=== PATIENT | female | born 1995 | race Caucasian/White ===

== ENCOUNTER 2021-02-03 05:59 | Inpatient (IN) ==
[2021-02-03] MEDS ORDERED: Penicillin G Potassium 5,000,000 UNIT in 0.9 % Sodium Chloride Mini Bag 100 ML IVPB ONE (06:01)
[2021-02-03] MEDS ORDERED: Azithromycin 500 MG in 0.9 % Sodium Chloride 250 ML IVPB PRN (06:03)
[2021-02-03] MEDS ORDERED: *HR* Nalbuphine 10 MG/ML AMPUL IV PRN (06:03)
[2021-02-03] MEDS ORDERED: Ondansetron 4 MG/2 ML VIAL IVP PRN (06:03)
[2021-02-03] MEDS ORDERED: Metoclopramide 10 MG/2 ML VIAL IVP PRN (06:03)
[2021-02-03] MEDS ORDERED: Famotidine 20 MG/2 ML VIAL IVP PRN (06:03)
[2021-02-03] MEDS ORDERED: Naloxone 0.4 MG/ML INJ IVP PRN (06:03)
[2021-02-03] MEDS: Ringers Solution, Lactated 1,000 ML IVC SCH ×2 (06:42→14:31)
[2021-02-03 07:22] LABS: Influenza A PCR Negative (Negative); Influenza B PCR Negative (Negative); Resp. Syncytial Virus PCR Negative (Negative)
[2021-02-03 07:23] LABS: SARS-CoV-2 by PCR (In House) Negative (Negative)
[2021-02-03 08:23] LABS: Basophils % 0.3 %; Eosinophils % 0.2 %; Hematocrit 36.9 % (35.3-44.9); Hemoglobin 12.6 g/dL (11.5-15.4); Immature Granulocytes % 0.5 % (0-4); Mean Corpuscular HGB Conc 34.1 g/dL (31.6-35.5); Mean Corpuscular Volume 84.8 fL (83.0-100.0); Mean Platelet Volume 11.2 fL (9.4-12.4); Monocytes # 0.6 K/mcL (0.0-1.3); Neutrophils # 7.1 K/mcL (1.6-8.9); Platelet Count 270 K/mcL (140-400); Red Blood Count 4.35 M/mcL (3.82-4.97); Red Cell Distribution Width 12.8 % (11.5-14.5); White Blood Count 9.7 K/mcL (4.3-11.1)
[2021-02-03] MEDS ORDERED: miSOPROStoL 25 MCG TABLET PO PRN (08:26)
[2021-02-03] MEDS ORDERED: Oxytocin 20 units/ LR 1000 mL 20 UNIT/1,000 ML BAG IVC SCH ×2 (08:30→18:14)
[2021-02-03] MEDS: Penicillin G Potassium 2,500,000 UNIT/105 ML MLS IVPB SCH ×2 (10:34→14:31)
[2021-02-03 11:03] LABS: Amphetamine Screen,Urine Negative ng/mL (Cutoff=1000); Barbiturate Screen,Urine Negative ng/mL (Cutoff=200); Benzodiazepines Screen,Urine Negative ng/mL (Cutoff=200); Cannabinoid Screen,Urine Negative ng/mL (Cutoff = 50); Cocaine Screen,Urine Negative ng/mL (Cutoff= 300); Opiate Screen,Urine Negative ng/mL (Cutoff=300); Phencyclidine Screen,Urine Negative ng/mL (Cutoff=25)
[2021-02-03] MEDS ORDERED: EPHEDrine 50 MG/ML VIAL IVP PRN (15:16)
[2021-02-03] MEDS ORDERED: Ropivacaine/PF 0.2% 20 ML VIAL EP ONE (15:16)
[2021-02-03] MEDS ORDERED: *HR* FentaNYL (PF) 100 MCG/2 ML VIAL EP ONE (15:16)
[2021-02-03] MEDS ORDERED: Epidural Premix (fent/bupiv) 110 ML EP SCH (15:30)
[2021-02-03] MEDS ORDERED: Rho Immune Globulin 1,500 UNIT SYRINGE IM PRN (18:14)
[2021-02-03] MEDS ORDERED: Ondansetron ODT 4 MG TAB.RAPDIS SL PRN (18:14)
[2021-02-03] MEDS ORDERED: Lanolin 7 G OINT...G. TP PRN (18:14)
[2021-02-03] MEDS ORDERED: Benzocaine/Menthol 56 GM AEROSOL SPRAY TP PRN (18:14)
[2021-02-03] MEDS ORDERED: Measles/Mumps/Rubella Vacc 0.5 ML VIAL SQ PRN (18:14)
[2021-02-03] MEDS: Ibuprofen 600 MG TABLET PO SCH (19:42)
[2021-02-03] MEDS: Acetaminophen 325 MG TABLET PO SCH (19:42)
[2021-02-04] MEDS: Acetaminophen 325 MG TABLET PO SCH ×2 (03:48→10:26)
[2021-02-04] MEDS: Ibuprofen 600 MG TABLET PO SCH ×2 (03:48→10:26)
[2021-02-04 04:15] VITALS: PULSE 63
[2021-02-04 05:32] LABS: Basophils % 0.2 %; Eosinophils % 0.2 %; Hematocrit 36.4 % (35.3-44.9); Hemoglobin 11.9 g/dL (11.5-15.4); Immature Granulocytes % 0.3 % (0-4); Lymphocytes % 15.2 %; Mean Corpuscular HGB Conc 32.7 g/dL (31.6-35.5); Mean Corpuscular Hemoglobin 28.5 pg (28.0-33.3); Mean Corpuscular Volume 87.3 fL (83.0-100.0); Mean Platelet Volume 11.2 fL (9.4-12.4); Monocytes # 0.7 K/mcL (0.0-1.3); Monocytes % 5.5 %; Neutrophils # 10.4 K/mcL (1.6-8.9); Platelet Count 268 K/mcL (140-400); Red Blood Count 4.17 M/mcL (3.82-4.97); Red Cell Distribution Width 12.8 % (11.5-14.5); Segmented Neutrophils % 78.6 %; White Blood Count 13.2 K/mcL (4.3-11.1)
[2021-02-04 07:56] VITALS: BP 108/70; TEMP 98.1; O2SAT 99
[2021-02-04] MEDS ORDERED: Prenatal Vit/FA 1 EACH TABLET PO SCH ×2 (09:00)
== END 2021-02-04 17:58 | disposition home or self-care (01) | DRG 560 ==
LOC: 1NENULAB 05:59 → 1NENUOBS 18:32
PROVIDERS: ADMIT Student in an Organized Health Care Education/Training Program; ATTEND Student in an Organized Health Care Education/Training Program